=== PATIENT | male | born 1960 ===

== ENCOUNTER → 2024-01-15 | Outpatient (CLI) | payer MEDICARE, BC ==
--- NOTE | 2024-02-09 15:22 | CONS ---
CONSULTATION REASON FOR CONSULTATION: 63-year-old gentleman has [facility] for possible obstructive sleep apnea-hypopnea syndrome. HISTORY OF PRESENT ILLNESS: Sleep-awake evaluation: The patient's usual sleep schedule varying from about 9:00 p.m. to midnight until 6:00 a.m. to 7:00 a.m. Usually, the patient does not have any significant problems with falling asleep, although he is using TV in his bedroom to help him to fall asleep. During the sleep, the patient snores quite loudly and sometimes wakes up from sleep with nocturia. Positive history of grinding teeth. No history of hypnagogic hallucinations, sleep paralysis, or cataplexy. Usually, the patient sleeps on the back and side position. The patient does not complain on significant sleepiness during the day. [place] Sleepiness Scale is 1. The patient usually does not take naps. PAST MEDICAL HISTORY: Positive for coronary artery disease with history of heart attack about 10 years ago, hypertension, acid reflux, diabetes mellitus. PAST SURGICAL HISTORY: Tonsillectomy, adenoidectomy, cardiac catheterization several times, stent insertion. MEDICATIONS: 1. Baby aspirin 81 mg once a day. 2. Lisinopril 40 mg once a day. 3. Carvedilol 2.5 mg once a day. 4. Metformin 1000 mg twice a day. 5. Atorvastatin 20 mg once a day. 6. Testosterone gel. 7. Prilosec 20 mg twice a day. SOCIAL HISTORY: Positive for smoking in the past, quit in 2004. Alcohol consumption, negative. REVIEW OF SYSTEMS: Snoring, sometimes awakenings from sleep. Otherwise, mostly negative. No fevers. No double vision. No recent chest pain. No shortness of breath. No abdominal pain. No bleeding episodes. No blood in the urine. No seizure episodes. FAMILY HISTORY: Positive for cardiac arrhythmia by his mom and diabetes. PHYSICAL EXAMINATION: GENERAL: gentleman without distress. VITAL SIGNS: BP 134/67, HR 61, RR 18. Weight by information from patient around 190 pounds, height 5 feet and 9 inches. Oxygen saturation at room air 100%, temperature 97.8. HEENT: Oropharynx, extremely low position of soft palate. Mallampati 4. PERRLA, EOMI. Evaluation of oropharynx showed tongue protrudes midline. NECK: 18.5 inches in circumference. Supple, no JVD. Thyroid is not palpable. LUNGS: Clear to percussion and to auscultation. Good air exchange. No wheezing or rhonchi. HEART: S1 and S2, regular. No murmurs, gallops, or rubs. ABDOMEN: Soft and nontender. Bowel sounds are present. No organomegaly appreciated. Slightly obese. EXTREMITIES: No clubbing or cyanosis. [employer]IM[employer]: Awake, alert, and oriented x3. Cranial nerves 2 to 7 intact. There is no fasciculation or atrophy. noted. No focal deficits observed. IMPRESSION: 1. Snoring, extremely low position of soft palate, Mallampati 4, wide neck, 18.5 inches in circumference. Possible obstructive sleep apnea-hypopnea syndrome. 2. Hypertension. 3. Coronary artery disease, status post heart attack and stent insertion. 4. Diabetes mellitus. 5. Acid reflux. 6. Hyperlipidemia. 7. History of grinding teeth. 8. Status post tonsillectomy and adenoidectomy. 9. Mild obesity. PLAN: 1. Polysomnography for evaluation of the patient's breathing during sleep. 2. Following plan after reading sleep study. 3. Sleep hygiene, regular time in bed for 7.5 hours. 4. Watching weight. 5. Precautions related to driving. No driving if feeling sleepiness. Thank you very much for referring this patient for consultation. MMODL / IJN: [id number] /
== END ==
LOC: 3 N SLEEP 13:40
PROVIDERS: ATTEND Internal Medicine
CPT/HCPCS: 99202